=== PATIENT | male | born 1965 | race Caucasian/White ===

== ENCOUNTER 2018-05-19 20:22 | Emergency (ER) | payer OTHER ==
[2018-05-19] MEDS ORDERED: Lidocaine 1% w/Epinephrine 1:100K 20 ML VIAL ONE (21:15)
[2018-05-19] MEDS ORDERED: Bacitracin Zinc 1 Packet ONE (21:51)
== END 2018-05-19 22:04 | disposition home or self-care (01) ==
LOC: ERS 20:22
DX: S01.81XA Laceration without foreign body of other part of head, initial encounter (principal); E11.9 Type 2 diabetes mellitus without complications; Z79.84 Long term (current) use of oral hypoglycemic drugs; Z79.899 Other long term (current) drug therapy; W22.8XXA Striking against or struck by other objects, initial encounter; Y93.02 Activity, running
CPT/HCPCS: 12013; J2001